=== PATIENT | male | born 1955 | race Caucasian/White ===

== ENCOUNTER 2019-06-07 19:27 | Inpatient (IN) | payer BC ==
[~2019-06-07] VITALS: Ht 193 cm; Wt 83.9 kg
[~2019-06-07 19:27] MED LIST: TRAM50TA2 PO
[2019-06-07] MEDS ORDERED: BUPR150T10 PO (19:57)
[2019-06-07] MEDS ORDERED: LORAZEPAM 1 MG TABLET ONE (20:10)
[2019-06-07] MEDS ORDERED: LORAZEPAM 0.5 MG TABLET PO ONE (20:15)
[2019-06-07 20:17] LABS: BASOPHILS # (AUTO) 0.1 K/uL (0.0-8.0); BASOPHILS % (AUTO) 0.5 % (0.0-2.0); EOSINOPHILS # (AUTO) 0.1 K/uL (0.0-0.7); EOSINOPHILS % (AUTO) 0.6 % (0.0-7.0); HEMATOCRIT 46.1 % (36.7-47.1); HEMOGLOBIN 15.6 g/dL (12.5-16.3); LYMPHOCYTES % (AUTO) 16.5 % (20.5-51.5); MEAN CORPUSCULAR HEMOGLOBIN 30.8 uug (23.8-33.4); MEAN CORPUSCULAR HGB CONC 34 g/dL (32.5-36.3); MONOCYTES # (AUTO) 0.8 K/uL (2.0-10.0); MONOCYTES % (AUTO) 6.2 % (0.0-11.0); NEUTROPHILS # (AUTO) 9.5 K/uL (1.8-8.9); NEUTROPHILS % (AUTO) 76.2 % (38.5-71.5); PLATELET COUNT (AUTO) 225 K/uL (152-348); RED BLOOD CELL COUNT(AUTO) 5.07 MIL/uL (4.06-5.63); WHITE BLOOD COUNT (AUTO) 12.4 K/uL (3.6-10.2)
[2019-06-07 20:28] LABS: *BILIRUBIN,URIN 1+ (NEGATIVE); *BLOOD, URINE NEGATIVE (NEGATIVE); *CLARITY,URINE SLIGHTLY CLOUDY (CLEAR); *COLOR,URINE YELLOW (YELLOW); *KETONES,URINE 1+ (NEGATIVE); *UROBILINOGEN,URINE 0.2 E.U./dl (NORMAL); LEUKOCYTE ESTERASE ,URINE NEGATIVE (NEGATIVE); NITRITE, URINE NEGATIVE (NEGATIVE); PH,URINE 5.5 (5.0-8.0); UGLUCOSE NEGATIVE (NEGATIVE)
[2019-06-07 20:29] LABS: CARBON DIOXIDE 24 mmol/L (21-32); CHLORIDE 107 mmol/L (98-107); CREATININE 1.4 mg/dL (0.6-1.3); GLUCOSE 154 mg/dL (74-106); POTASSIUM 4.3 mmol/L (3.5-5.1); UREA NITROGEN, BLOOD 27 mg/dL (7-18)
[2019-06-07 20:35] LABS: ACETAMINOPHEN < 2.0 ug/mL (10-30); ALANINE AMINOTRANSFERASE 26 U/L (16-63); ALKALINE PHOSPHATASE 61 U/L (50-136); ASPARTATE AMINOTRANSFERASE 23 U/L (15-37); BILIRUBIN,DIRECT 0.2 mg/dL (0.0-0.2); TOTAL PROTEIN, SERUM 7.2 g/dL (6.4-8.2)
[2019-06-07 20:37] LABS: ETHANOL < 3 MG/DL (0-0)
[2019-06-07] MEDS ORDERED: DILTIAZEM HCL 25 MG IV ONE ×2 (20:38→22:00)
[2019-06-07 20:39] LABS: BACTERIA,URINE FEW /HPF (NONE SEEN); RBC,URINE NONE SEEN /HPF (0-3); WBC,URINE 0-3 /HPF (0-3)
[2019-06-07 20:40] LABS: *AMPHETAMINE, URINE NEGATIVE (NEGATIVE); *BARBITURATE, URINE NEGATIVE (NEGATIVE); *CANNABINOID, URINE NEGATIVE (NEGATIVE); *COCCAINE, URINE NEGATIVE (NEGATIVE); *OPIATE, URINE NEGATIVE (NEGATIVE); *PHENCYCLIDINE SCREEN,URINE NEGATIVE (NEGATIVE); SQUAMOUS EPITHELIAL CELL,UR FEW /HPF (NONE SEEN)
[2019-06-07 20:41] LABS: MUCUS,URINE MODERATE /LPF (0-FEW); URINE AMORPHOUS URATE FEW /HPF
[2019-06-07 20:42] LABS: THYROID STIMULATING HORMONE 5.133 mIU/mL (0.358-3.740)
[2019-06-07] MEDS ORDERED: IV NORMAL SALINE 1000 ML BAG IV ONE (20:45)
[2019-06-07] MEDS ORDERED: DILTIAZEM HCL 25 MG IV IV ONE ×2 (20:45→21:45)
[2019-06-07] MEDS ORDERED: ATOR10TA PO (21:38)
[2019-06-07] MEDS ORDERED: METO-357 PO (21:38)
[2019-06-07] MEDS ORDERED: ZOLP12.542 PO (21:38)
[2019-06-07] MEDS ORDERED: GABA-534 PO (21:38)
[2019-06-07] MEDS ORDERED: RIVA10TA PO (21:38)
[2019-06-07] MEDS ORDERED: Z GUARD REMEDY PASTE 57 GM TUBE TOP PRN (23:15)
[2019-06-07] MEDS ORDERED: ACETAMINOPHEN 325 MG TABLET PO PRN (23:15)
[2019-06-07] MEDS ORDERED: ONDANSETRON 4 MG/2 ML VIAL IV PRN (23:15)
[2019-06-07 23:28] VITALS: BP 127/77
[2019-06-07] MEDS: DILTIAZEM HCL CD 180 MG CAP.SR.24H PO SCH (23:34)
[2019-06-07] MEDS: ZOLPIDEM 5 MG TABLET PO PRN (23:35)
[2019-06-08 05:00] VITALS: BP 112/79
[2019-06-08 06:33] LABS: BASOPHILS # (AUTO) 0.1 K/uL (0.0-8.0); BASOPHILS % (AUTO) 0.8 % (0.0-2.0); EOSINOPHILS # (AUTO) 0.3 K/uL (0.0-0.7); EOSINOPHILS % (AUTO) 2.7 % (0.0-7.0); HEMATOCRIT 42.6 % (36.7-47.1); HEMOGLOBIN 14.3 g/dL (12.5-16.3); LYMPHOCYTES # (AUTO) 2.3 K/uL (20.0-40.0); LYMPHOCYTES % (AUTO) 23.9 % (20.5-51.5); MEAN CORPUSCULAR HEMOGLOBIN 31.1 uug (23.8-33.4); MEAN CORPUSCULAR HGB CONC 34 g/dL (32.5-36.3); MEAN CORPUSCULAR VOLUME 92.6 fL (73.0-96.2); MONOCYTES # (AUTO) 0.7 K/uL (2.0-10.0); MONOCYTES % (AUTO) 7.7 % (0.0-11.0); NEUTROPHILS # (AUTO) 6.2 K/uL (1.8-8.9); NEUTROPHILS % (AUTO) 64.9 % (38.5-71.5); PLATELET COUNT (AUTO) 189 K/uL (152-348); WHITE BLOOD COUNT (AUTO) 9.6 K/uL (3.6-10.2)
[2019-06-08 06:46] LABS: THYROID STIMULATING HORMONE 5.52 mIU/mL (0.358-3.740)
[2019-06-08 06:47] LABS: PHOSPHOROUS 3.6 mg/dL (2.5-4.9); POTASSIUM 4.2 mmol/L (3.5-5.1)
[2019-06-08 07:18] VITALS: BP 120/81
[2019-06-08] MEDS: DILTIAZEM HCL CD 180 MG CAP.SR.24H PO SCH (08:41)
[2019-06-08] MEDS: GABAPENTIN 300 MG CAPSULE PO SCH ×3 (08:42→16:18)
[2019-06-08] MEDS ORDERED: buPROPion SR 150 MG TABLET.SA PO SCH (09:00)
[2019-06-08] MEDS ORDERED: METOPROLOL SUCCINATE XL 50 MG TAB.SR.24H PO SCH (09:00)
[2019-06-08] MEDS ORDERED: RIVAROXABAN 10 MG TABLET PO SCH ×2 (09:00→18:00)
[2019-06-08] MEDS: METOPROLOL SUCCINATE XL 50 MG TAB.SR.24H PO SCH ×2 (11:10→21:14)
[2019-06-08 12:00] VITALS: BP 111/49
[2019-06-08] MEDS: buPROPion SR 150 MG TABLET.SA PO SCH (12:15)
[2019-06-08] MEDS ORDERED: ACET325T53 PO (15:55)
[2019-06-08 16:28] VITALS: BP 117/82
[2019-06-08] MEDS: TRAMADOL HCL 50 MG TABLET PO PRN (17:32)
[2019-06-08 20:00] VITALS: BP 123/74
[2019-06-08] MEDS ORDERED: ATORVASTATIN 10 MG TABLET PO SCH (21:00)
[2019-06-08] MEDS: ZOLPIDEM 5 MG TABLET PO PRN (23:55)
[2019-06-09 05:45] VITALS: BP 122/86
[2019-06-09] MEDS: buPROPion SR 150 MG TABLET.SA PO SCH ×2 (08:26→12:58)
[2019-06-09] MEDS: GABAPENTIN 300 MG CAPSULE PO SCH ×2 (08:26→12:57)
[2019-06-09] MEDS: METOPROLOL SUCCINATE XL 50 MG TAB.SR.24H PO SCH (08:27)
[2019-06-09] MEDS: TRAMADOL HCL 50 MG TABLET PO PRN (08:33)
[2019-06-09] MEDS ORDERED: CLONAZEPAM 0.5 MG TABLET PO PRN (10:30)
[2019-06-09 11:00] VITALS: BP 120/77
== END 2019-06-09 16:05 | disposition home or self-care (01) | DRG 308 ==
LOC: ER 19:27 → DOU3 22:30 → TELE-TD3 22:45 → MEDSURG3 06-08 17:20
PROVIDERS: ADMIT Nurse Practitioner Acute Care; ATTEND Internal Medicine
DX: I48.0 Paroxysmal atrial fibrillation (principal); N17.0 Acute kidney failure with tubular necrosis; F32.1 Major depressive disorder, single episode, moderate; F43.21 Adjustment disorder with depressed mood; Z66 Do not resuscitate; Z85.51 Personal history of malignant neoplasm of bladder; Z79.01 Long term (current) use of anticoagulants; E78.5 Hyperlipidemia, unspecified; Z79.899 Other long term (current) drug therapy; E03.9 Hypothyroidism, unspecified
CPT/HCPCS: 36415; 70030-TC; 71045; 80307; 83735; 84100; 84443; 85025; 85730; 93005; 93307; A4663; G0378; G0480; G0480-TC; J3490; J7030; J7050